=== PATIENT | female | born 1985 | race Hispanic/Latino ===

== ENCOUNTER 2017-08-27 16:10 | Emergency (ER) | payer SELFPAY ==
[~2017-08-27] VITALS: Ht 177.8 cm; Wt 120.2 kg
[2017-08-27] MEDS ORDERED: KETOROLAC TROMETHAMINE 30 MG/ML VIAL IV STA (16:28)
[2017-08-27] MEDS ORDERED: ONDANSETRON HCL 4 MG ORAL DISINTEGRATING TAB PO ONE (16:45)
[2017-08-27 20:39] VITALS: BP 150/88
== END 2017-08-27 18:30 | disposition home or self-care (01) ==
LOC: FSED 16:10
DX: M54.6 Pain in thoracic spine (principal); S29.012A Strain of muscle and tendon of back wall of thorax, initial encounter
CPT/HCPCS: 71020; 80048; 81025; 99283; J1885; 71046

== ENCOUNTER 2018-09-12 17:43 | Emergency (ER) | payer SELFPAY ==
[~2018-09-12] VITALS: Ht 172.7 cm; Wt 108.9 kg
[2018-09-12] MEDS ORDERED: ONDANSETRON HCL 4 MG ORAL DISINTEGRATING TAB PO ONE (18:15)
[2018-09-12] MEDS ORDERED: ALBUTEROL/IPRATROPIUM 3 ML NEB NEB ONE (18:15)
[2018-09-12] MEDS ORDERED: ACETAMINOPHEN 325 MG TAB PO ONE (19:00)
--- NOTE | 2018-09-12 19:52 | Diagnostic Imaging Report ---
EXAMINATION: CXR 2 VIEW - HOPD INDICATION: Flulike symptoms, cough, fever COMPARISON: None FINDINGS: PA and lateral views TUBES and LINES: None. LUNGS: Lungs are well inflated. Mild peribronchial cuffing. There is no evidence of consolidative pneumonia or pulmonary edema. PLEURA: No pleural effusion or pneumothorax. HEART AND MEDIASTINUM: The cardiomediastinal silhouette is unremarkable. BONES AND SOFT TISSUES: No acute osseous lesion. Soft tissues are unremarkable. UPPER ABDOMEN: No free air under the diaphragm. IMPRESSION: Mild peribronchial cuffing which may suggest viral infection or reactive airways disease. No evidence of consolidative pneumonia. Signed by: DR. Brandon Bradford MD on 09/12/2018 7:49 PM
== END 2018-09-12 20:14 | disposition home or self-care (01) ==
LOC: FSED 17:43
DX: R50.9 Fever, unspecified (principal); R05 Cough; J11.1 Influenza due to unidentified influenza virus with other respiratory manifestations
CPT/HCPCS: 71046; 87400; 99283; Q0162

== ENCOUNTER 2019-02-25 12:50 | Emergency (ER) | payer SELFPAY ==
[~2019-02-25] VITALS: Ht 172.7 cm; Wt 117.9 kg
--- OUTSIDE RECORDS SUMMARY | 2019-02-25 12:54 | XMS REPORT ---
Author Author [facility] Address Unknown Phone Unavailable Care Team Providers Care Tinner Helper Name Role Phone Juan OCHOA Unavailable Unavailable Payers Payer Name Policy Type Policy Number Effective Date Expiration Date Problems This patient has no known problems. Allergies, Adverse Reactions, Alerts Allergy Name Allergy Type Status Severity Reaction(s) Onset Date Inactive Date Treating Clinician Comments Penicillins DA Active WI 2019-02-14 00:00:00 No Known Allergies DA Active U 2016-05-23 00:00:00 Medications This patient has no known medications. Results Test Description Test Time Test Comments Text Results Atomic Results Result Comments HCG SERUM QUAL 2019-02-19 00:45:00 HCG SERUM QUAL (test code=HCGQL) NEGATIVE NEGATIVE This HCGQL test is NOT applicable for MALE patients.Check with nurse about probable order error.If Tumor Marker Test needed, nurse should order test "HCGTU"(Test #[id number]) - XR CHEST 1 [id number] 22:09:00 FAX: Negrita Coffman [phone] [place]: St: REG Name: ALEXANDRA MORALES [facility] : [birth year] Age/S: 33/F [address] Unit #: [id number] Loc: [place] [address] Phys: Negrita Mckeon MD Acct: [id number] Dis Date: Status: REG ER PHONE #: [phone] Exam Date: 02/18/20192117 FAX #: [phone] Reason: near syncope EXAMS: CPT CODE: [id number] XR CHEST 1 V 40595 REASON FOR EXAM: near syncope Exam Order Date: 02/18/2019 7:40 PM Ordering Richard: Negrita Mckeon MD PROCEDURE: - XR CHEST 1 V C OMPARISON: AP chest x-ray February 16, 2019 FINDINGS: Lung vol umes are diminished. There appears to be subsegmental atelectasis in the l eft retrocardiac space and right midlung. Otherwise lungs are clear. Cardiomediastinal silhouette appears prominent however this may partly be due to low lung volumes. The mediastinal contours are within normal limits. Musculoskeletal structures are within normal limits. Prior cholecystectomy. IMPRESSION: Low lung volumes with subsegmental atelectasis in the right midlung and possibly in the left retrocardiac space. The lungs are otherwise clear. at 2209 Reported and signed by: Chi Buenrostro MD CC: Negrita Mckeon MD Technologist: Arben Ortiz RT(R Trnscrd Date/Time/By: 02/18/2019 (2208) : By: [email or web address] Orig Print D/T: S: 02/18/2019 (2764) PAGE 1 Signed Report - XR ABDOMEN AP 1 [id number] 22:08:00 FAX: Negrita Coffman [phone] [place]: St: REG Name: ALEXANDRA MORALES [facility] : [birth year] Age/S: 33/F [address] [facility] Unit #: [id number] Loc: [place] [address] Phys: Negrita Mckeon MD Acct: [id number] Dis Date: Status: REG ER PHONE #: [phone] Exam Date: 02/18/20192117 FAX #: [phone] Reason: constipation EXAMS: CPT CODE: [id number] XR ABDOMEN AP 1 V 90107 HISTORY: constipation TECHNIQUE: AP abdomen x-ray COMPARISON: None FI NDINGS: Prior cholecystectomy. Nonspecific nonobstructed bowel ga s pattern. No intra-abdominal mass effect. No abnormal calcificati ons are observed. Visualized osseous structures are intact. IMPRESSION: No radiographic evidence of acute intra-abd ominal process. Electronically Signed by Chi Buenrostro MD on 9 at 2208 Reported and signed by: Chi Buenrostro MD CC: Negrita Mckeon MD Tech nologist: RT Elle(R Trnscrd Date/Ti me/By: 02/18/2019 (2207) : By: [email or web address] Orig Print D/T: S: 02/18/2019 (9053) PAGE 1 Signed Report BASIC METABOLIC [id number] 21:04:00* Test Item Value Reference Range Comments SODIUM (test code=NA) 138 mmol/L 136-145 POTASSIUM (test code=K) 3.6 mmol/L 3.5-5.1 CHLORIDE (test code=CL) 105.0 mmol/L 98-107 CARBON DIOXIDE (test code=CO2) 28.0 mmol/L 21-32 ANION GAP (test code=GAP) 8.6 10-20 GLUCOSE (test code=GLU) 92 mg/dL 74-106 BLOOD UREA NITROGEN (test code=BUN) 11 mg/dL 7-18 GLOMERULAR FILTRATION RATE (test code=GFR) > 60 mL/min >=60 Estimated GFR by using Modified MDRD formula.Chronic kidney disease is defined as either kidney damageor GFR <60 mL/min/1.73 m2 for >3 months. CREATININE (test code=CREAT) 0.90 mg/dL 0.55-1.02 Note change in reference range due to change in reagent. BUN/CREATININE RATIO (test code=BUN/CREA) 12.0 10-20 CALCIUM (test code=CA) 8.6 mg/dL 8.5-10.1 HEPATIC FUNCTION [id number] 21:04:00* Test Item Value Reference Range Comments TOTAL PROTEIN (test code=PROT) 7.1 gram/dL 6.4-8.2 ALBUMIN (test code=ALB) 3.2 g/dL 3.4-5.0 GLOBULIN (test code=GLOB) 3.9 gram/dL 2.7-4.2 ALBUMIN/GLOBULIN RATIO (test code=A/G) 0.8 0.75-1.50 BILIRUBIN TOTAL (test code=BILT) 0.30 mg/dL 0.0-1.0 BILIRUBIN DIRECT (test code=BILD) 0.10 mg/dL 0.0-0.20 SGOT/AST (test code=AST) 32 IUnit/L 15-37 SGPT/ALT (test code=ALT) 41 IUnit/L 12-78 ALKALINE PHOSPHATASE TOTAL (test code=ALKP) 87 IUnit/L 45-117 Note change in reference range due to change in reagent. [id number] 21:04:00* Test Item Value Reference Range Comments LIPASE (test code=LIP) 50 U/L 73.0-393.0 [id number] 21:04:00* Test Item Value Reference Range Comments TROPONIN-I (test code=TROPI) <0.015 ng/mL 0-0.045 BASIC METABOLIC [id number] 20:54:00* Test Item Value Reference Range Comments SODIUM (test code=NA) 138 mmol/L 136-145 POTASSIUM (test code=K) 3.6 mmol/L 3.5-5.1 CHLORIDE (test code=CL) 105.0 mmol/L 98-107 CARBON DIOXIDE (test code=CO2) mmol/L 21-32 ANION GAP (test code=GAP) 10-20 GLUCOSE (test code=GLU) mg/dL 74-106 BLOOD UREA NITROGEN (test code=BUN) mg/dL 7-18 GLOMERULAR FILTRATION RATE (test code=GFR) mL/min >=60 CREATININE (test code=CREAT) mg/dL 0.55-1.02 BUN/CREATININE RATIO (test code=BUN/CREA) 10-20 CALCIUM (test code=CA) mg/dL 8.5-10.1 HEPATIC FUNCTION [id number] 20:54:00* Test Item Value Reference Range Comments TOTAL PROTEIN (test code=PROT) gram/dL 6.4-8.2 ALBUMIN (test code=ALB) g/dL 3.4-5.0 GLOBULIN (test code=GLOB) gram/dL 2.7-4.2 ALBUMIN/GLOBULIN RATIO (test code=A/G) 0.75-1.50 BILIRUBIN TOTAL (test code=BILT) mg/dL 0.0-1.0 BILIRUBIN DIRECT (test code=BILD) mg/dL 0.0-0.20 SGOT/AST (test code=AST) IUnit/L 15-37 SGPT/ALT (test code=ALT) IUnit/L 12-78 ALKALINE PHOSPHATASE TOTAL (test code=ALKP) IUnit/L 45-117 [id number] 20:54:00* Test Item Value Reference Range Comments LIPASE (test code=LIP) U/L 73.0-393.0 [id number] 20:54:00* Test Item Value Reference Range Comments TROPONIN-I (test code=TROPI) ng/mL 0-0.045 CBC W/AUTO [id number] 20:35:00* Test Item Value Reference Range Comments WHITE BLOOD CELL (test code=WBC) 9.4 K/mm3 4.5-12.5 RED BLOOD CELL (test code=RBC) 4.51 mill/mm3 3.7-5.2 HEMOGLOBIN (test code=HGB) 11.0 gram/dL 11.5-15.5 HEMATOCRIT (test code=HCT) 36.0 % 36.0-46.0 MEAN CELL VOLUME (test code=MCV) 79.8 fL 80-98 MEAN CELL HGB (test code=MCH) 24.4 picogram 27.0-33.0 MEAN CELL HGB CONCETRATION (test code=MCHC) 30.6 gram/dL 33.0-36.0 RED CELL DISTRIBUTION WIDTH (test code=RDW) 16.6 % 11.6-16.2 RED CELL DISTRIBUTION WIDTH SD (test code=RDW-SD) 48.3 fL 37.0-51.0 PLATELET COUNT (test code=PLT) 282 K/mm3 150-450 MEAN PLATELET VOLUME (test code=MPV) 10.5 fL 6.7-11.0 NEUTROPHIL % (test code=NT%) 76.0 % 39.0-69.0 IMMATURE GRANULOCYTE % (test code=IG%) 0.4 % 0.0-5.0 LYMPHOCYTE % (test code=LY%) 15.5 % 25.0-55.0 MONOCYTE % (test code=MO%) 5.3 % 0.0-10.0 EOSINOPHIL % (test code=EO%) 2.4 % 0.0-5.0 BASOPHIL % (test code=BA%) 0.4 % 0.0-1.0 NUCLEATED RBC % (test code=NRBC%) 0.0 % 0-0 NEUTROPHIL # (test code=NT#) 7.10 K/mm3 1.8-7.7 IMMATURE GRANULOCYTE # (test code=IG#) 0.04 x10 3/uL 0-0.03 LYMPHOCYTE # (test code=LY#) 1.45 K/mm3 1.0-5.0 MONOCYTE # (test code=MO#) 0.50 K/mm3 0-0.8 EOSINOPHIL # (test code=EO#) 0.22 K/mm3 0.0-0.5 BASOPHIL # (test code=BA#) 0.04 K/mm3 0.0-0.2 NUCLEATED RBC # (test code=NRBC#) 0.00 K/mm3 0.0-0.1 MANUAL DIFF REQUIRED (test code=MDIFF) NO [id number] 15:19:00 RUN DATE: 02/17/19 [facility] Lab PAGE 1 RUN TIME: 1519 Specimen Inqui ry RUN USER: INTERFACE PATIENT: ALEXANDRA MARC ACCT #: [id number] LOC: YUNIEL U #: [id number] AGE/SX: 33/F ROOM: [facility] RE02/15/19[facility] DR: Ivory Dudley MD : 87 BED: B DIS: 02/17/19 STATUS: DIS IN TLOC: SPEC #: [id number] RECD: 02/16/19 STATUS: [place]FREY [place]O #: [id number] LARA: 02/16/[address] [facility] [address]: Noel Thomason MD ENTERED: 02/16/19 SP TYPE: GALLBLADD OTHR DR: Noel Thomason MD ORDERED: GROSS MARKERS: ABNORMAL TISSUE, GALLBLADDER PROCE DURES: RATNA (02/17/19-5161) TISSUES: GALLBLADDER, NOS CLINICA L HISTORY COLLECTION DATE: 02/16/2019 ACUTE CHOLECYSTITIS FINAL DIAGNOSIS Gallbladder, cholecystectomy: CHRONIC CHOLECYSTITIS WITH MU RAL FIBROSIS CHOLELITHIASIS NEGATIVE FOR MALIGNANCY RRB/ sm A 20194 MACROSCOPIC The specimen is received in formalin, la beled with the patient's name, and identified as "gallbladder". The specimen consists of a gallbladder which is received in multiple fragments. Adhesions are present on the serosal surface. The mucosal surface has a finely trabecula saúl appearance. The gallbladder measures and estimated 8 x 4.3 x 1.8 cm. The gallbladder wall measures up to 0.3 cm in thickness. Also received in the s vikash container are multiple brown-yellow multifaceted gallstones and gallstone fragments measuring from 0.1 to 1.2 cm in diameter. Samples of the specimen are submitted for microscopic evaluation in a single cassette. GROSS PER FORMED AT [facility] [address] [place] [address] [phone] CONTINUED ON NEXT PAGE RUN DATE: 02/17/19 [facility] Lab PAGE 2 RUN TIME: 1519 Specimen Inquiry RUN USER: INTERFACE SPEC #: [id number] PATIENT: ALEXANDRA MARC #[id number] (Continue d) MICROSCOPIC All of the stains, including any contro ls performed, stain appropriately. MICROSCOPIC PERFORMED AT [facility] [address] [facility], [place] [address] [phone] PERFORMING SITE Diagnosis performed at: [facility] [address] [place] [address] Signed SIGNATURE ON FILE Manuel Swenson MD 02/17/19 END OF REPORT - XR CHEST 1 [id number] 23:35:00 FAX: Ivory Pavon MD [phone] [place]: [address]: ADM Name: ALEXANDRA MORALES [facility] : [birth year] Age/S: 33/F [address] Unit #: [id number] Loc: [address] [place] [address] Phys: Ivory Dudley MD Acct: [id number] Dis Date: Status: ADM IN PHONE #: [phone] Exam Date: 02/16/20192328 FAX #: [phone] Reason: dyspnea EXAMS: CPT CODE: [id number] XR CHEST 1 V 46818 EXAM: - XR CHEST 1 V Location code:C3 HISTORY: dyspnea COMPARISON: None available time of interpretation. FINDINGS: Single AP view of the chest is provided. Heart size and vascularity are within no rmal limits. Streaky left perihilar opacity is present. The right lung i s clear. There is no effusion or pneumothorax. IM PRESSION: 1. Streaky left perihilar opacity could represent atelectasis , edema, or pneumonia. at 5989 Reported and signed by: Pk Rawls M.D. CC: Ivory Dudley MD Technologist: Cecy Lopez Trnscrd Sean e/Time/By: 02/16/2019 (9819) : By: [email or web address] Orig Print D/T: S: 2018 (9615) PAGE 1 Signed Report CBC W/O [id number] 01:00:00* Test Item Value Reference Range Comments WHITE BLOOD CELL (test code=WBC) 7.7 K/mm3 4.5-12.5 RED BLOOD CELL (test code=RBC) 4.63 mill/mm3 3.7-5.2 HEMOGLOBIN (test code=HGB) 11.7 gram/dL 11.5-15.5 HEMATOCRIT (test code=HCT) 37.0 % 36.0-46.0 MEAN CELL VOLUME (test code=MCV) 79.9 fL 80-98 MEAN CELL HGB (test code=MCH) 25.3 picogram 27.0-33.0 MEAN CELL HGB CONCETRATION (test code=MCHC) 31.6 gram/dL 33.0-36.0 RED CELL DISTRIBUTION WIDTH (test code=RDW) 16.9 % 11.6-16.2 PLATELET COUNT (test code=PLT) 312 K/mm3 150-450 MEAN PLATELET VOLUME (test code=MPV) 11.5 fL 6.7-11.0 CBC W/O [id number] 00:59:00* Test Item Value Reference Range Comments WHITE BLOOD CELL (test code=WBC) K/mm3 4.5-12.5 RED BLOOD CELL (test code=RBC) mill/mm3 3.7-5.2 HEMOGLOBIN (test code=HGB) 11.7 gram/dL 11.5-15.5 HEMATOCRIT (test code=HCT) 37.0 % 36.0-46.0 MEAN CELL VOLUME (test code=MCV) fL 80-98 MEAN CELL HGB (test code=MCH) picogram 27.0-33.0 MEAN CELL HGB CONCETRATION (test code=MCHC) gram/dL 33.0-36.0 RED CELL DISTRIBUTION WIDTH (test code=RDW) % 11.6-16.2 PLATELET COUNT (test code=PLT) K/mm3 150-450 MEAN PLATELET VOLUME (test code=MPV) fL 6.7-11.0 BASIC METABOLIC [id number] 00:43:00* Test Item Value Reference Range Comments SODIUM (test code=NA) 141 mmol/L 136-145 POTASSIUM (test code=K) 3.8 mmol/L 3.5-5.1 CHLORIDE (test code=CL) 108.0 mmol/L 98-107 CARBON DIOXIDE (test code=CO2) 29.0 mmol/L 21-32 ANION GAP (test code=GAP) 7.8 10-20 GLUCOSE (test code=GLU) 87 mg/dL 74-106 BLOOD UREA NITROGEN (test code=BUN) 9 mg/dL 7-18 GLOMERULAR FILTRATION RATE (test code=GFR) > 60 mL/min >=60 Estimated GFR by using Modified MDRD formula.Chronic kidney disease is defined as either kidney damageor GFR <60 mL/min/1.73 m2 for >3 months. CREATININE (test code=CREAT) 0.90 mg/dL 0.55-1.02 Note change in reference range due to change in reagent. BUN/CREATININE RATIO (test code=BUN/CREA) 9.5 10-20 CALCIUM (test code=CA) 8.6 mg/dL 8.5-10.1 HEPATIC FUNCTION [id number] 00:43:00* Test Item Value Reference Range Comments TOTAL PROTEIN (test code=PROT) 7.6 gram/dL 6.4-8.2 ALBUMIN (test code=ALB) 3.5 g/dL 3.4-5.0 GLOBULIN (test code=GLOB) 4.1 gram/dL 2.7-4.2 ALBUMIN/GLOBULIN RATIO (test code=A/G) 0.9 0.75-1.50 BILIRUBIN TOTAL (test code=BILT) 0.20 mg/dL 0.0-1.0 BILIRUBIN DIRECT (test code=BILD) < 0.05 mg/dL 0.0-0.20 SGOT/AST (test code=AST) 21 IUnit/L 15-37 SGPT/ALT (test code=ALT) 36 IUnit/L 12-78 ALKALINE PHOSPHATASE TOTAL (test code=ALKP) 100 IUnit/L 45-117 Note change in reference range due to change in reagent. [id number] 00:43:00* Test Item Value Reference Range Comments LIPASE (test code=LIP) 79 U/L 73.0-393.0 HCG SERUM [id number] 00:43:00* Test Item Value Reference Range Comments HCG SERUM QUAL (test code=HCGQL) NEGATIVE NEGATIVE This HCGQL test is NOT applicable for MALE patients.Check with nurse about probable order error.If Tumor Marker Test needed, nurse should order test "HCGTU"(Test #550.82740) BASIC METABOLIC [id number] 00:35:00* Test Item Value Reference Range Comments SODIUM (test code=NA) 141 mmol/L 136-145 POTASSIUM (test code=K) 3.8 mmol/L 3.5-5.1 CHLORIDE (test code=CL) 108.0 mmol/L 98-107 CARBON DIOXIDE (test code=CO2) mmol/L 21-32 ANION GAP (test code=GAP) 10-20 GLUCOSE (test code=GLU) mg/dL 74-106 BLOOD UREA NITROGEN (test code=BUN) mg/dL 7-18 GLOMERULAR FILTRATION RATE (test code=GFR) mL/min >=60 CREATININE (test code=CREAT) mg/dL 0.55-1.02 BUN/CREATININE RATIO (test code=BUN/CREA) 10-20 CALCIUM (test code=CA) mg/dL 8.5-10.1 HEPATIC FUNCTION [id number] 00:35:00* Test Item Value Reference Range Comments TOTAL PROTEIN (test code=PROT) gram/dL 6.4-8.2 ALBUMIN (test code=ALB) g/dL 3.4-5.0 GLOBULIN (test code=GLOB) gram/dL 2.7-4.2 ALBUMIN/GLOBULIN RATIO (test code=A/G) 0.75-1.50 BILIRUBIN TOTAL (test code=BILT) mg/dL 0.0-1.0 BILIRUBIN DIRECT (test code=BILD) mg/dL 0.0-0.20 SGOT/AST (test code=AST) IUnit/L 15-37 SGPT/ALT (test code=ALT) IUnit/L 12-78 ALKALINE PHOSPHATASE TOTAL (test code=ALKP) IUnit/L 45-117 [id number] 00:35:00* Test Item Value Reference Range Comments LIPASE (test code=LIP) U/L 73.0-393.0 HCG SERUM [id number] 00:35:00* Test Item Value Reference Range Comments HCG SERUM QUAL (test code=HCGQL) NEGATIVE NEGATIVE This HCGQL test is NOT applicable for MALE patients.Check with nurse about probable order error.If Tumor Marker Test needed, nurse should order test "HCGTU"(Test #550.70519) BASIC METABOLIC [id number] 00:24:00* Test Item Value Reference Range Comments SODIUM (test code=NA) 141 mmol/L 136-145 POTASSIUM (test code=K) 3.8 mmol/L 3.5-5.1 CHLORIDE (test code=CL) 108.0 mmol/L 98-107 CARBON DIOXIDE (test code=CO2) mmol/L 21-32 ANION GAP (test code=GAP) 10-20 GLUCOSE (test code=GLU) mg/dL 74-106 BLOOD UREA NITROGEN (test code=BUN) mg/dL 7-18 GLOMERULAR FILTRATION RATE (test code=GFR) mL/min >=60 CREATININE (test code=CREAT) mg/dL 0.55-1.02 BUN/CREATININE RATIO (test code=BUN/CREA) 10-20 CALCIUM (test code=CA) mg/dL 8.5-10.1 HEPATIC FUNCTION [id number] 00:24:00* Test Item Value Reference Range Comments TOTAL PROTEIN (test code=PROT) gram/dL 6.4-8.2 ALBUMIN (test code=ALB) g/dL 3.4-5.0 GLOBULIN (test code=GLOB) gram/dL 2.7-4.2 ALBUMIN/GLOBULIN RATIO (test code=A/G) 0.75-1.50 BILIRUBIN TOTAL (test code=BILT) mg/dL 0.0-1.0 BILIRUBIN DIRECT (test code=BILD) mg/dL 0.0-0.20 SGOT/AST (test code=AST) IUnit/L 15-37 SGPT/ALT (test code=ALT) IUnit/L 12-78 ALKALINE PHOSPHATASE TOTAL (test code=ALKP) IUnit/L 45-117 [id number] 00:24:00* Test Item Value Reference Range Comments LIPASE (test code=LIP) U/L 73.0-393.0 HCG SERUM [id number] 00:24:00* Test Item Value Reference Range Comments HCG SERUM QUAL (test code=HCGQL) NEGATIVE URINALYSIS [id number] 00:15:00* Test Item Value Reference Range Comments UA COLOR (test code=COLU) YELLOW YELLOW UA APPEARANCE (test code=APPU) CLEAR CLEAR UA GLUCOSE DIPSTICK (test code=DGLUU) NEGATIVE mg/dL NEGATIVE UA BILIRUBIN DIPSTICK (test code=BILU) NEGATIVE mg/dL NEGATIVE UA KETONE DIPSTICK (test code=KETU) NEGATIVE mg/dL NEGATIVE UA SPECIFIC GRAVITY (test code=SGU) 1.027 1.001-1.035 UA BLOOD DIPSTICK (test code=IVAN) >1.0 mg/dL NEGATIVE UA PH DIPSTICK (test code=YESIKA) 6.0 5.0-8.0 UA PROTEIN DIPSTICK (test code=PROU) 10 (Trace) mg/dL NEGATIVE UA UROBILINIOGEN DIPSTICK (test code=URO) 2.0 (1+) mg/dL NEGATIVE UA NITRITE DIPSTICK (test code=EDWARD) NEGATIVE NEGATIVE UA LEUKOCYTE ESTERASE W REFLEX (test code=LEUUR) NEGATIVE Ana Laura/uL NEGATIVE UA WBC (test code=WBCU) 0-5 per HPF 0-5 UA RBC (test code=RBCU) 0-2 #/HPF 0-5 UA EPITHELIAL CELLS (test code=EPIU) MOD per HPF FEW UA BACTERIA (test code=BACU) FEW #/HPF NONE UA MUCUS (test code=MUCU) FEW #/LPF FEW Urine Source? Clean CatchURINALYSIS [id number] 00:13:00* Test Item Value Reference Range Comments UA COLOR (test code=COLU) YELLOW YELLOW UA APPEARANCE (test code=APPU) CLEAR CLEAR UA GLUCOSE DIPSTICK (test code=DGLUU) NEGATIVE mg/dL NEGATIVE UA BILIRUBIN DIPSTICK (test code=BILU) NEGATIVE mg/dL NEGATIVE UA KETONE DIPSTICK (test code=KETU) NEGATIVE mg/dL NEGATIVE UA SPECIFIC GRAVITY (test code=SGU) 1.027 1.001-1.035 UA BLOOD DIPSTICK (test code=IVAN) >1.0 mg/dL NEGATIVE UA PH DIPSTICK (test code=YESIKA) 6.0 5.0-8.0 UA PROTEIN DIPSTICK (test code=PROU) 10 (Trace) mg/dL NEGATIVE UA UROBILINIOGEN DIPSTICK (test code=URO) 2.0 (1+) mg/dL NEGATIVE UA NITRITE DIPSTICK (test code=EDWARD) NEGATIVE NEGATIVE UA LEUKOCYTE ESTERASE W REFLEX (test code=LEUUR) NEGATIVE Ana Laura/uL NEGATIVE UA WBC (test code=WBCU) per HPF 0-5 UA RBC (test code=RBCU) per HPF 0-5 UA EPITHELIAL CELLS (test code=EPIU) per HPF Few UA BACTERIA (test code=BACU) per HPF NONE Urine Source? Clean Catch- US ABDOMEN [id number] 00:03:00 Name: ALEXANDRA MARC [facility] : 1985 Age/S: 33 / F [address] Unit #: [id number] Loc: [place] [address] Phys: Shirley Islas Acct: [id number] Di s Date: Status: PRE ER PHONE #: Exam Date: 02/14/2019 4019 FAX #: Reason: Abdominal Pain EXAMS: CPT CODE: [id number] US ABDOMEN LTD 03479 DICTATION LOCATION: H48 HISTORY: Female, 33 years of age with Abdominal Pain EXAM: ULTRASOUND OF THE RIGHT UPPER QUADRANT COMPARISON: CT abd omen and pelvis without IV contrast 05/24/2016 TECHNIQUE: Real-lexus e grayscale 2-D imaging, Doppler spectral analysis, and Doppler color flow imaging were performed with the variable megahertz curved array transducer transabdominally. FINDINGS: PANCREAS: Obscured by bowel g as. GALLBLADDER: Multiple shadowing stones are seen in gallbladder lumen . Gallbladder wall is thickened at 3 mm. No pericholecystic fluid. S onographer reports positive Beaver sign. COMMON BILE DUCT: 3.5 mm, normal caliber. LIVER: Diffusely echogenic. No focal mass or enlargement. Portal vein is patent with appropriate hepatopedal flow. RIGHT KIDNEY: Unr emarkable. OTHER: There is no ascites. IMPRESSION: 1. Gallstones, mild gallbladder wall thickening, and positive Beaver sign. 2. No biliary dilatation. 3. Fatty liver. Domenica ctronically Signed by Asia Vasquez MD on 02/15/2019 at 0003 Reported and signed by: Asia Vasquez MD CC: Angel Islas Technologist: ABEL MARSHALL RDMS Trnscb Date/Time: 02/15/2019 (0003) [email or web address] Orig Print D/T: S: 02/15/2019 (0006) Probe: PAGE 1 Signed Report CXR 2 VIEW - [id number] 19:47:00 [place] [id number] Patient Name: ALEXANDRA MARC MR #: [id number] : 1985 Age/Sex: 33/F Req #: [id number] Adm Physician: Ordered by: SHEILA OCHOA MD Report #: [id number] Location: ED Room/Bed: Procedure: [id number] HOPD/CXR 2 VIEW - HOPD Exam Date: 09/12/18 Exam Time: 1909 REPORT STATUS: Signed EXAMINATION: CXR 2 VIEW - HOPD INDICATION: Flulike symptoms, cough, fever COMPARISON: None FINDINGS: PA and lateral views TU BES and LINES: None. LUNGS: Lungs are well inflated. Mild peribronchial cuffing. There is no evidence of consolidative pneumonia or pulmonary edema. PLEURA: No pleural effusion or pneumothorax. HEART AND MEDIASTINUM: The cardiomediastinal silhouette is unremarkable. BONES AND SOFT TISSU ES: No acute osseous lesion. Soft tissues are unremarkable. UPPER ABDOM EN: No free air under the diaphragm. IMPRESSION: Mild peribronchial cuffing which may suggest viral infection or reactive airways disease. No evid ence of consolidative pneumonia. Signed by: DR. Brandon Medellin MD on 019 7:49 PM Dictated By: BRANDON MEDELLIN MD 48 Transcribed By: ROBSON on 09/12/181948 CO PY TO: SHEILA OCHOA MD
== END 2019-02-25 13:43 | disposition left against medical advice (07) ==
LOC: FSED 12:50
DX: Z53.21 Procedure and treatment not carried out due to patient leaving prior to being seen by health care provider (principal)

== ENCOUNTER 2019-06-20 01:14 | Emergency (ER) | payer SELFPAY ==
[~2019-06-20] VITALS: Ht 172.7 cm; Wt 113.4 kg
[2019-06-20] MEDS ORDERED: DIAZEPAM INJ 5 MG/ML 2 ML IM ONE (01:30)
[2019-06-20] MEDS ORDERED: KETOROLAC TROMETHAMINE 60 MG/2 ML VIAL IM ONE (01:30)
[2019-06-20] MEDS ORDERED: DIAZEPAM INJ 5 MG/ML 2 ML ONE (01:37)
[2019-06-20] MEDS ORDERED: KETOROLAC TROMETHAMINE 60 MG/2 ML VIAL ONE (01:37)
--- NOTE | 2019-06-20 04:34 | Diagnostic Imaging Report ---
History: Back pain. Comparison studies: None Technique:: Axial were obtained through the thoracic and lumbar regions. Coronal and sagittal images reconstructed from the axial data. Dose modulation, iterative reconstruction, and/or weight based adjustment of the mA/kV was utilized to reduce the radiation dose to as low as reasonably achievable. Intravenous contrast: None Findings: Alignment: Normal thoracic kyphosis. Normal lumbar lordosis.. No scoliosis. Soft tissues: Incidental 3 mm calcified pulmonary nodule in right lower lobe. Paraspinal muscles: Unremarkable Spinal cord: Can not be evaluated. Vertebrae: 3 mm well-corticated osseous fragment in the anterior and superior corner of L4 vertebral body possibly represents equally of prior trauma to anterior vertebral osteophyte. No infection or neoplasm . Thoracic degenerative changes: Mild multilevel degenerative disc disease and endplate Schmorl's node in the mid and lower thoracic spine. Lumbar degenerative changes: Mild multilevel degenerative disc disease. No significant canal or foraminal stenosis. Visualized portion of bilateral sacroiliac joints: Mild degenerative change with decreased joint space, endplate sclerosis and vacuum phenomenon. IMPRESSION: 1. No acute thoracic or lumbar spine fracture or dislocation. 2. [place] of prior trauma in the anterior and superior corner of L4 vertebral body. 3. Minimal multilevel degenerative disc disease of the thoracic and lumbar spine. No canal or foraminal stenosis. 4. Ligament, spinal cord and or vascular abnormalities cannot be excluded on the basis of this examination. Signed by: Dr. Yanni Hall M.D. on 06/20/2019 4:31 AM
== END 2019-06-20 05:15 | disposition home or self-care (01) ==
LOC: FSED 01:14
DX: S39.012A Strain of muscle, fascia and tendon of lower back, initial encounter (principal); M47.814 Spondylosis without myelopathy or radiculopathy, thoracic region; M47.816 Spondylosis without myelopathy or radiculopathy, lumbar region; X50.1XXA Overexertion from prolonged static or awkward postures, initial encounter; Y92.008 Other place in unspecified non-institutional (private) residence as the place of occurrence of the external cause
CPT/HCPCS: 72128; 72131; 81025; 96372; 99283; J1885; J3360

== ENCOUNTER 2023-06-27 18:35 | Emergency (ER) | payer BC ==
[~2023-06-27] VITALS: Ht 172.7 cm; Wt 122.5 kg
[2023-06-27] MEDS ORDERED: ALBUTEROL/IPRATROPIUM 3 ML NEB NEB ONE (19:00)
[2023-06-27] MEDS ORDERED: ALBUTEROL/IPRATROPIUM 3 ML NEB ONE (19:01)
[2023-06-27] MEDS ORDERED: AZITHROMYCIN250 MG PO (20:01)
[2023-06-27] MEDS ORDERED: PREDNISONE50 MG PO (20:01)
[2023-06-27] MEDS ORDERED: VENTOLIN HFA18 GM INH (20:01)
[2023-06-27] MEDS ORDERED: BROMFED DM COU118 ML PO (20:01)
[2023-06-27 20:11] VITALS: BP 14/80; PULSE 81; RESP 18; TEMP 98; O2SAT 97
== END 2023-06-27 20:11 | disposition home or self-care (01) ==
LOC: FSED 18:39
DX: R06.02 Shortness of breath (principal); J40 Bronchitis, not specified as acute or chronic; R05.9 Cough, unspecified; Z20.822 Contact with and (suspected) exposure to COVID-19; F17.210 Nicotine dependence, cigarettes, uncomplicated; Z86.718 Personal history of other venous thrombosis and embolism
CPT/HCPCS: 0223U; 71046; 80053; 85025; 85379; 87400; 99283

== ENCOUNTER 2024-03-11 20:31 | Emergency (ER) | payer BC ==
[~2024-03-11] VITALS: Ht 172.7 cm; Wt 114.9 kg
[~2024-03-11 20:31] MED LIST: AZITHROMYCIN250 MG PO; BROMFED DM COU118 ML PO; PREDNISONE50 MG PO; VENTOLIN HFA18 GM INH
[2024-03-11 21:15] VITALS: PULSE 88; RESP 18; TEMP 98.3
[2024-03-11] MEDS: ONDANSETRON HCL INJ 2MG/ML 2ML 2 MG/ML VIAL IV STA (23:54)
[2024-03-11] MEDS: KETOROLAC TROMETHAMINE 30 MG/ML VIAL IV STA (23:54)
[2024-03-11] MEDS: SODIUM CHLORIDE 0.9% 1000ML 1,000 ML IV STA (23:54)
[2024-03-12] MEDS ORDERED: CEFTRIAXONE 1 GM VIAL ONE (01:29)
[2024-03-12] MEDS: CEFTRIAXONE 1 GM VIAL IM ONE (01:34)
[2024-03-12 01:35] VITALS: BP 125/82; PULSE 68; RESP 17; TEMP 98.8; O2SAT 98
[2024-03-12] MEDS ORDERED: CEFDINIR300 MG PO (01:49)
[2024-03-12] MEDS ORDERED: ONDANSETRON ODT4 MG PO (01:50)
[2024-03-12] MEDS ORDERED: PHENAZOPYRIDIN200 MG PO (01:51)
[2024-03-12] MEDS ORDERED: ULTRAM 50MG50 MG PO (01:51)
== END 2024-03-12 02:15 | disposition home or self-care (01) ==
LOC: FSED 21:14
DX: N30.01 Acute cystitis with hematuria (principal); N12 Tubulo-interstitial nephritis, not specified as acute or chronic; D64.9 Anemia, unspecified; Z86.718 Personal history of other venous thrombosis and embolism
CPT/HCPCS: 74176; 99284; J0696; J1885; J2405; J7030